=== PATIENT | female | born 1970 | race Caucasian/White ===

== ENCOUNTER → 2017-07-22 | Outpatient (CLI) | payer MEDICARE, MEDICAID | END | disposition home or self-care (01) | LOC: Rad HDHVI 14:14 | PROVIDERS: ATTEND Internal Medicine Cardiovascular Disease | DX: R06.89 Other abnormalities of breathing (principal); G90.9 Disorder of the autonomic nervous system, unspecified; I08.0 Rheumatic disorders of both mitral and aortic valves | CPT/HCPCS: 93306 ==

== ENCOUNTER → 2017-07-29 | Outpatient (CLI) | payer MEDICARE, MEDICAID ==
[~2017-07-29] VITALS: Ht 167.6 cm; Wt 75.3 kg
[~2017-07-29] MED LIST: ADENOSINE 63 MG in GIVE UN-DILUTED 0 ML IV ONE; ADENOSINE 90 MG/30 ML INJ IV ONE
[2017-07-29 13:05] LABS: Basophils # (auto) 0.1 uL; Basophils % (auto) 1.1 % (0.0-2.0); Eosinophils # (auto) 0.1 uL; Eosinophils % (auto) 2.7 % (0.0-7.0); Hematocrit 38.4 % (36.0-46.0); Hemoglobin 12.9 g/dL (12.2-16.2); Lymphocytes % (auto) 36.8 % (10.0-50.0); Mean Corpuscular Hgb Conc. 33.5 g/dL (32.0-36.0); Mean Corpuscular Volume 86.7 fL (80.0-100.0); Monocytes # (auto) 0.5 uL; Monocytes % (auto) 10.2 % (0.0-12.0); Neutrophils # (auto) 2.6 uL; Neutrophils % (auto) 49.2 % (37.0-80.0); Nucleated Red Blood Cells % 0.3 %; Platelet Count (auto) 361 10^3/uL (140-450); Red Blood Cells 4.43 10^6/uL (4.0-5.20); Red Cell Distribution Width 14.3 % (11.8-14.3); White Blood Cell 5.4 10^3/uL (4.4-10.8)
[2017-07-29 13:24] LABS: Albumin 3.5 g/dL (3.4-5.0); BUN/Creatinine Ratio 13.3; Bilirubin, Total 0.6 mg/dL (0.2-1.0); Calcium 8.8 mg/dL (8.5-10.1); Potassium 3.6 mmol/L (3.5-5.1); Total Protein 7.6 g/dL (6.4-8.2)
[2017-07-29 13:33] LABS: Free T4 (Free Thyroxine) 0.84 ng/dL (0.89-1.76)
[2017-07-30 12:53] LABS: Urine Blood Negative /uL (Negative)
== END | disposition home or self-care (01) ==
LOC: Rad HDHVI 10:14
PROVIDERS: ATTEND Internal Medicine Cardiovascular Disease
DX: I10 Essential (primary) hypertension (principal); G70.00 Myasthenia gravis without (acute) exacerbation; E11.9 Type 2 diabetes mellitus without complications; E78.00 Pure hypercholesterolemia, unspecified; E03.9 Hypothyroidism, unspecified; D64.9 Anemia, unspecified; E55.9 Vitamin D deficiency, unspecified; N39.0 Urinary tract infection, site not specified; R53.83 Other fatigue; G90.9 Disorder of the autonomic nervous system, unspecified; D51.9 Vitamin B12 deficiency anemia, unspecified; R06.89 Other abnormalities of breathing
CPT/HCPCS: 36415; 78452; 80053; 80061; 81003; 82306; 82607; 83036; 84439; 84443; 85025; 93005; 96374; 96375; A9500; J0153

== ENCOUNTER → 2017-08-20 | Outpatient (CLI) | payer MEDICARE, MEDICAID | END | disposition home or self-care (01) | LOC: Rad HDHVI 15:32 | PROVIDERS: ATTEND Internal Medicine Cardiovascular Disease | DX: M79.603 Pain in arm, unspecified (principal) | CPT/HCPCS: 93930 ==

== ENCOUNTER → 2018-04-13 | Outpatient (CLI) | payer MEDICARE, MEDICAID ==
[~2018-04-13] MED LIST changes: -ADENOSINE 63 MG in GIVE UN-DILUTED 0 ML IV ONE; -ADENOSINE 90 MG/30 ML INJ IV ONE; +SODIUM CHLORIDE 0.9% 1,000 ML IV ONE
[2018-04-13 17:00] VITALS: BP 124/80
== END | disposition home or self-care (01) ==
LOC: CHF HDHVI 15:45
PROVIDERS: ATTEND Internal Medicine Cardiovascular Disease
DX: E86.0 Dehydration (principal); T67.1XXA Heat syncope, initial encounter
CPT/HCPCS: 96360; G0463; J7030

== ENCOUNTER → 2018-04-20 | Outpatient (CLI) | payer MEDICARE, MEDICAID | END | disposition home or self-care (01) | LOC: Rad HDHVI 11:10 | PROVIDERS: ATTEND Internal Medicine Cardiovascular Disease | DX: E11.9 Type 2 diabetes mellitus without complications (principal); I95.9 Hypotension, unspecified; G90.9 Disorder of the autonomic nervous system, unspecified; Z88.8 Allergy status to other drugs, medicaments and biological substances | CPT/HCPCS: 93306 ==

== ENCOUNTER → 2018-12-09 | Outpatient (CLI) | payer MEDICARE, MEDICAID | END | disposition home or self-care (01) | LOC: Rad HDHVI 14:02 | PROVIDERS: ATTEND Internal Medicine Cardiovascular Disease | DX: I47.9 Paroxysmal tachycardia, unspecified (principal); I10 Essential (primary) hypertension; E11.9 Type 2 diabetes mellitus without complications | CPT/HCPCS: 93306 ==

== ENCOUNTER → 2019-04-21 | Outpatient (CLI) | payer MEDICARE, MEDICAID ==
[2019-04-21 16:01] LABS: Basophils # (auto) 0 uL; Basophils % (auto) 0.5 % (0.0-2.0); Calcium 8.7 mg/dL (8.5-10.1); Eosinophils # (auto) 0.3 uL; Eosinophils % (auto) 3.2 % (0.0-7.0); Hematocrit 40.5 % (36.0-46.0); Hemoglobin 13.4 g/dL (12.2-16.2); Lymphocytes # (auto) 2.2 uL; Lymphocytes % (auto) 25.5 % (10.0-50.0); Mean Corpuscular Hemoglobin 29.5 pg (28.0-32.0); Mean Corpuscular Hgb Conc. 33.2 g/dL (32.0-36.0); Mean Corpuscular Volume 88.9 fL (80.0-100.0); Monocytes # (auto) 0.8 uL; Monocytes % (auto) 9.2 % (0.0-12.0); Neutrophils # (auto) 5.3 uL; Neutrophils % (auto) 61.6 % (37.0-80.0); Nucleated Red Blood Cells % 0.1 %; Platelet Count (auto) 434 10^3/uL (140-450); Potassium 3.3 mmol/L (3.5-5.1); Red Blood Cells 4.55 10^6/uL (4.0-5.20); Red Cell Distribution Width 14.5 % (11.8-14.3); White Blood Cell 8.7 10^3/uL (4.4-10.8)
== END | disposition home or self-care (01) ==
LOC: LAB 13:51
PROVIDERS: ATTEND Internal Medicine Cardiovascular Disease
DX: D64.9 Anemia, unspecified (principal); I10 Essential (primary) hypertension
CPT/HCPCS: 36415; 80048; 85025

== ENCOUNTER 2024-06-13 18:40 | Emergency (ER) | payer MEDICARE, MEDICAID ==
[~2024-06-13] VITALS: Ht 165.1 cm; Wt 79.0 kg
[2024-06-13 19:39] LABS: Basophils # (auto) 0 10 ^3/uL (0-0.2); Basophils % (auto) 0.6 % (0.0-2.0); Eosinophils # (auto) 0.2 10 ^3/uL (0-0.8); Eosinophils % (auto) 3.4 % (0.0-7.0); Hematocrit 35.8 % (36.0-46.0); Hemoglobin 12.3 g/dL (12.2-16.2); Lymphocytes # (auto) 1.7 10 ^3/uL (0.4-5.4); Lymphocytes % (auto) 26.8 % (10.0-50.0); Mean Corpuscular Hemoglobin 31.5 pg (28.0-32.0); Mean Corpuscular Hgb Conc. 34.3 g/dL (32.0-36.0); Mean Corpuscular Volume 91.9 fL (80.0-100.0); Monocytes # (auto) 0.7 10 ^3/uL (0-1.3); Monocytes % (auto) 11.3 % (0.0-12.0); Neutrophils # (auto) 3.8 10 ^3/uL (1.6-8.6); Neutrophils % (auto) 57.9 % (37.0-80.0); Platelet Count (auto) 264 10^3/uL (140-450); Red Cell Distribution Width 13.1 % (11.8-14.3); White Blood Cell 6.5 10^3/uL (4.4-10.8)
[2024-06-13 19:42] LABS: Anion Gap 2 (5-15); Carbon Dioxide 31 mmol/L (20-30); Chloride 98 mmol/L (98-107); Potassium 4.2 mmol/L (3.5-5.1); Sodium 131 mmol/L (136-145)
[2024-06-13 19:43] LABS: Calcium 9.2 mg/dL (8.7-10.4)
[2024-06-13 19:48] LABS: BUN/Creatinine Ratio 8.5 (10.0-20.0); Blood Urea Nitrogen 7 mg/dL (9-23); Glucose 100 mg/dL (74-106)
[2024-06-13 21:04] LABS: Urine Bacteria None Seen /hpf (None Seen); Urine WBC None Seen /hpf (0 - 5)
[2024-06-13 21:14] LABS: Urine Blood Negative /uL (Negative); Urine Clarity Clear (Clear); Urine Color Colorless (Yellow); Urine Protein, UAD Negative (Negative); Urine Specific Gravity 1.007 (1.001-1.035); Urine Urobilinogen Normal (Negative); Urine pH 7.5 (5.0-9.0)
[2024-06-13] MEDS ORDERED: LORazepam 2MG/ML-1ML VIAL IV PRN (23:00)
[2024-06-13] MEDS: HYDROcodone-ACET 10/325MG TAB PO ONE (23:54)
[2024-06-14] MEDS: IOHEXOL 350 MG/ML 100ML IJ ONE (01:44)
[2024-06-14] MEDS: KETOROLAC TROMETH 30 MG/ML 1ML VIAL IV ONE (01:45)
[2024-06-14] MEDS: METOCLOPRAMIDE HCL 5MG/ml INJ 2ml VIAL IV ONE ×3 (01:45→16:09)
[2024-06-14] MEDS: ONDANSETRON HCL 4 MG/2 ML VIAL IV ONE (05:44)
[2024-06-14] MEDS ORDERED: PATIENTS OWN MEDICATION (eliquis 5 MG) PO SCH (10:00)
[2024-06-14] MEDS: ENOXAPARIN SOD 40 MG/0.4 ML SYRINGE SC SCH (10:09)
[2024-06-14] MEDS: PYRIDOstigmine BROMIDE 60 MG TAB PO SCH (10:09)
[2024-06-14] MEDS: ATORVASTATIN 20 MG TAB PO SCH (10:09)
[2024-06-14] MEDS: HYDROcodone-ACET 10/325MG TAB PO ONE ×2 (11:13→20:50)
[2024-06-14] MEDS: PRIMIDONE 50 MG TAB PO SCH (22:08)
[2024-06-14] MEDS: LORazepam 2MG/ML-1ML VIAL IM ONE (23:26)
[2024-06-14] MEDS: diphenhdrAMINE HCL 25 MG CAP PO ONE (23:43)
[2024-06-15 07:46] VITALS: PULSE 76; RESP 17; O2SAT 97
[2024-06-15] MEDS: HYDROcodone-ACET 10/325MG TAB PO ONE (10:43)
[2024-06-15 10:58] VITALS: BP 137/81; PULSE 90; RESP 14; TEMP 98.7; O2SAT 98
== END 2024-06-15 11:05 | disposition short-term general hospital (02) ==
LOC: EDBD 18:40 → ER 18:40
DX: H57.02 Anisocoria (principal); R51.9 Headache, unspecified; E78.5 Hyperlipidemia, unspecified; N18.9 Chronic kidney disease, unspecified; Z90.710 Acquired absence of both cervix and uterus; Z95.0 Presence of cardiac pacemaker; Z86.73 Personal history of transient ischemic attack (TIA), and cerebral infarction without residual deficits; Z98.890 Other specified postprocedural states
CPT/HCPCS: 36415; 70450; 80048; 81001; 85025; 96372; 96374; 96375; 96376; 99285; J1650; J1885; J2060; J2405; J2765